=== PATIENT | female | born 1940 | race African-American/Black ===

== ENCOUNTER 2020-06-10 10:33 | Outpatient (CLI) | payer MEDICARE, MEDICAID | END 2020-06-10 10:34 | disposition home or self-care (01) | LOC: CSHCT 10:33 | PROVIDERS: ATTEND Family Medicine | DX: R51.9 Headache, unspecified (principal) | CPT/HCPCS: 70450; 82565 ==

== ENCOUNTER 2021-02-10 07:57 | Outpatient (CLI) | payer MEDICARE, OTHER | END 2021-02-10 07:58 | disposition home or self-care (01) | LOC: CSHCT 07:57 | PROVIDERS: ATTEND Family Medicine | DX: K63.89 Other specified diseases of intestine (principal); N26.1 Atrophy of kidney (terminal); I70.0 Atherosclerosis of aorta | CPT/HCPCS: 74176 ==

== ENCOUNTER 2022-11-06 09:48 | Outpatient (CLI) | payer OTHER, MEDICAID | END 2022-11-06 09:49 | disposition home or self-care (01) | LOC: CSHRAD 09:48 | PROVIDERS: ATTEND Nurse Practitioner Family | DX: R13.19 Other dysphagia (principal); K22.89 Other specified disease of esophagus | CPT/HCPCS: 74220 ==

== ENCOUNTER 2023-10-02 09:49 | Outpatient (CLI) | payer OTHER, MEDICAID | END 2023-10-02 09:50 | disposition home or self-care (01) | LOC: CSHULT 09:49 | PROVIDERS: ATTEND Internal Medicine Nephrology | DX: N18.4 Chronic kidney disease, stage 4 (severe) (principal); N28.89 Other specified disorders of kidney and ureter | CPT/HCPCS: 76770 ==